=== PATIENT | female | born 1960 | race Caucasian/White ===

== ENCOUNTER 2019-09-23 18:09 | Inpatient (IN) | payer MEDICAID ==
[~2019-09-23] VITALS: Ht 160 cm; Wt 76.2 kg
--- NOTE | 2019-09-23 19:28 | NUR ---
MS/RN NOTES RECEIVED REPORT FROM MELISSA GALLEGOS AT [facility]. PATIENT DIAGNOSIS OF CHOLECYSTITIS. INITIAL V/S BP 107/65 HR 69 TEMP 97.9 SAO2 98. WILL ENDORSED TO COMPLIANCE PROGRAM MANAGER FOR ASSESSMENT AND ADMISSION.
--- NOTE | 2019-09-23 19:45 | NUR ---
MS ABORIGINAL LIAISON OFFICER NOTES RECEIVED ADMISSION FROM DAY SHIFT RN. PATIENT DIRECTLY ADMITTED FROM [facility] FOR ACUTE CHOLECYSTITIS. A/OX4. ABLE TO VERBALIZE NEEDS. STABLE ON RA. IV PRESENT ON RIGHT WRIST, SIZE 20, INTACT & PATENT, HEP LOCKED. SKIN IS DRY AND INTACT. LUNGS SOUND CLEAR THROUGHOUT. BOWEL SOUNDS PRESENT. PATIENT C/O LOWER ABDOMINAL PAIN RATED 8/10. DENIES N/V AT THIS TIME. BELONGINGS LIST REVIEWED WITH PATIENT AND PLACED IN CHART. MRSA SWAB OBTAINED. PATIENT STATES NO HOME MEDS. MANAGER NON PROFIT ORCHARD WORKER, IVONE FRANKEL, NOTIFIED OF ADMISSION. AWAITING ADMITTING ORDERS. SAFETY MEASURES IN PLACE AND PATIENT'S NEEDS MET. WILL CONTINUE TO MONITOR.
[2019-09-23 20:00] VITALS: BP 114/53
[2019-09-23] MEDS ORDERED: ZOLPIDEM TARTRATE 5 MG TABLET PO PRN (20:00)
[2019-09-23] MEDS ORDERED: Z GUARD REMEDY 2 OZ OINT TP PRN (20:00)
[2019-09-23] MEDS ORDERED: ACETAMINOPHEN 325 MG TABLET PO PRN (20:00)
[2019-09-23] MEDS: MORPHINE SULFATE INJ 2 MG/ML DISP.SYRIN IV PRN (20:12)
[2019-09-23] MEDS: IV NS 0.9% 1,000 ML IV PRN (23:03)
[2019-09-24] MEDS ORDERED: METRONIDAZOLE 500MG/ NS 100ML 500 MG in PREMIX 1 EA IV SCH (00:30)
[2019-09-24 01:00] VITALS: BP 111/53
[2019-09-24] MEDS ORDERED: METRONIDAZOLE 500MG/ NS 100ML 100 ML IV ONE (01:07)
[2019-09-24] MEDS ORDERED: CEFTRIAXONE 1 G VIAL ONE ×2 (01:08→01:47)
[2019-09-24] MEDS: MORPHINE SULFATE INJ 2 MG/ML DISP.SYRIN IV PRN ×4 (01:09→21:54)
[2019-09-24] MEDS: ONDANSETRON HCL/PF 4 MG/2 ML VIAL IVP PRN (01:22)
[2019-09-24] MEDS: CEFTRIAXONE 2 G in IV NS 0.9% 100 ML IV SCH (02:26)
--- NOTE | 2019-09-24 06:26 | NUR ---
MS RN NOTES PATIENT'S WALLET AND JEWELRY SENT TO SAFE IN NURSING SUBPOENA SERVER'S OFFICE. TICKET NUMBER STAPLED TO BELONGINGS LIST AND PLACED IN CHART.
[2019-09-24 06:54] LABS: BASOPHILS % (AUTO) 0.5 % (0.0-2.0); EOSINOPHILS % (AUTO) 1.7 % (0.0-6.0); HEMATOCRIT 29 % (33-45); HEMOGLOBIN 10.1 g/dL (11.5-14.8); LYMPHOCYTES # (AUTO) 1.1 /CMM (0.8-4.8); LYMPHOCYTES % (AUTO) 38.1 % (20.0-44.0); MEAN CORPUSCULAR HGB CONC 35 g/dl (31.0-36.0); MEAN CORPUSCULAR VOLUME 89 fL (82-100); MONOCYTES # (AUTO) 0.2 /CMM (0.1-1.30); MONOCYTES % (AUTO) 6.9 % (2.0-12.0); NEUTROPHILS # (AUTO) 1.5 /CMM (1.8-8.9); NEUTROPHILS % (AUTO) 52.8 % (43.0-81.0); PLATELET COUNT (AUTO) 209 /CMM (150-450); RED BLOOD CELL COUNT(AUTO) 3.29 MIL/uL (4.0-5.2); WHITE BLOOD COUNT (AUTO) 2.8 K/uL (4.3-11.0)
[2019-09-24 07:05] LABS: CALCIUM, SERUM 8.2 mg/dL (8.5-10.1); CREATININE 0.7 mg/dL (0.6-1.3); PHOSPHORUS 3.6 mg/dL (2.5-4.9); POTASSIUM 3.8 mmol/L (3.5-5.1)
[2019-09-24 07:25] LABS: THYROID STIMULATING HORMONE 1.476 uIU/mL (0.358-3.74)
--- NOTE | 2019-09-24 07:30 | NUR ---
RN OPENING NOTE Patient is resting in bed, A/O x4, showing no signs of acute distress or SOB, stable on RA. IV line in the LFA #20g is clean and intact running NS @ 75ml/hour. Patient is ambulatory and has BRP. Patient has no complaints of pain at this time. Patient kept NPO due to HIDA scan scheduled for this AM. Bed is in lowest position, side rails x3 in upright position, call light is within reach, fall safety and aspiration precautions enforced. Will continue with plan of care.
--- NOTE | 2019-09-24 07:42 | NUR ---
MS RN CLOSING NOTES PATIENT AWAKE IN BED. A/OX4. STABLE ON RA. NO C/O OF SOB OR PAIN. IV ON LEFT FA, SIZE 20, INTACT & PATENT WITH NS RUNNING AT 75 ML/HR. PATIENT NPO. SAFETY MEASURES IN PLACE AND PATIENT'S NEEDS MET. BED LOCKED, SIDE RAILS X2, CALL LIGHT WITHIN REACH. WILL ENDORSE TO DAY SHIFT NURSE PLAN OF CARE.
[2019-09-24 08:00] VITALS: BP 102/67
[2019-09-24] MEDS: PANTOPRAZOLE 40 MG VIAL IV SCH (08:11)
[2019-09-24] MEDS: METRONIDAZOLE 500MG/ NS 100ML 500 MG in PREMIX 1 EA IV SCH ×3 (08:11→20:57)
[2019-09-24 08:16] VITALS: BP 102/67
[2019-09-24 08:33] LABS: IRON, SERUM 162 ug/dl (50-175); TOTAL IRON BINDING CAPACITY 290 ug/dl (250-450)
[2019-09-24 08:48] LABS: FERRITIN 72 ng/mL (8-388)
[2019-09-24 08:55] LABS: EOSINOPHILS % (MANUAL) 1 % (0-4); LYMPHOCYTES % (MANUAL) 28 % (16-48); MONOCYTES % (MANUAL) 6 % (0-11.0); NEUTROPHILS % (MANUAL) 65 (42-76)
[2019-09-24] MEDS: ENOXAPARIN SODIUM 40 MG/0.4 ML DISP.SYRIN SQ SCH (08:58)
--- NOTE | 2019-09-24 09:00 | NUR ---
RN NOTE Patient went down to HIDA scan.
--- NOTE | 2019-09-24 09:15 | NUR ---
RT NOTE Went to pt room for EKG. Pt was away from dept.
--- NOTE | 2019-09-24 10:43 | NUR ---
RN NOTE Patient is back from HIDA scan.
--- NOTE | 2019-09-24 11:37 | NUR ---
RN NOTE HIDA scan came back negative, MD at the bedside discussing POC with patient. Ok per MD to start on clear liquid diet.
[2019-09-24 13:18] LABS: ALBUMIN 2.9 g/dL (3.4-5.0); BILIRUBIN,DIRECT 0.3 mg/dL (0.0-0.2); BILIRUBIN,TOTAL 0.8 mg/dL (0.2-1.0); TOTAL PROTEIN, SERUM 6.8 g/dL (6.4-8.2)
[2019-09-24 16:00] VITALS: BP 110/51
--- NOTE | 2019-09-24 16:00 | NUR ---
RN NOTE Called Dr. Alcantara's office and spoke with board of education secretary. Left a message to consult with patient and review HIDA/MRCP.
[2019-09-24 16:40] VITALS: BP 110/51
--- NOTE | 2019-09-24 19:21 | NUR ---
RN CLOSING NOTE Patient is resting in bed, A/O x4, showing no signs of acute distress or SOB, stable on RA. Patient's pain managed throughout shift. IV line in the LFA #20g is clean and intact. All patient needs met, all due medications given, patient has BRP and is ambulatory. Fall safety and aspiration precautions enforced. Will endorse to night shift manager.
--- NOTE | 2019-09-24 19:45 | NUR ---
MS RN OPENING NOTES PATIENT AWAKE IN BED. A/OX4; ABLE TO VERBALIZE NEEDS. STABLE ON RA. NO C/O OF SOB OR PAIN AT THIS TIME. IV PRESENT ON LEFT FA, SIZE 20, INTACT & PATENT, HEP LOCKED. SAFETY MEASURES IN PLACE AND PATIENT'S NEEDS MET. BED LOCKED, SIDE RAILS X2, CALL LIGHT WITHIN REACH. WILL CONTINUE TO MONITOR.
--- NOTE | 2019-09-24 19:55 | NUR ---
MS RN NOTES PATIENT SEEN BY RACHELE SILVEIRA AT THE BEDSIDE
[2019-09-24 20:00] VITALS: BP 114/71
[2019-09-25] MEDS: IV NS 0.9% 1,000 ML IV PRN (01:09)
[2019-09-25] MEDS: CEFTRIAXONE 2 G in IV NS 0.9% 100 ML IV SCH (01:09)
[2019-09-25 04:34] VITALS: BP 113/59
[2019-09-25] MEDS: MORPHINE SULFATE INJ 2 MG/ML DISP.SYRIN IV PRN ×2 (04:35→13:49)
[2019-09-25] MEDS: METRONIDAZOLE 500MG/ NS 100ML 500 MG in PREMIX 1 EA IV SCH ×3 (04:37→20:49)
[2019-09-25] MEDS: ONDANSETRON HCL/PF 4 MG/2 ML VIAL IVP PRN (04:44)
--- NOTE | 2019-09-25 06:52 | NUR ---
MS RN CLOSING NOTES PATIENT AWAKE IN BED. A/OX4. NO C/O OF SOB OR PAIN AT THIS TIME. IV PRESENT ON LEFT FA, SIZE 20, INTACT & PATENT, WITH NS RUNNING AT 75 ML/HR. SAFETY MEASURES IN PLACE AND PATIENT'S NEEDS MET. BED LOCKED, SIDE RAILS X2, CALL LIGHT WITHIN REACH. WILL ENDORSE TO DAY SHIFT NURSE PLAN OF CARE.
[2019-09-25 08:00] VITALS: BP 107/64
[2019-09-25 08:04] LABS: BASOPHILS % (AUTO) 0.4 % (0.0-2.0); EOSINOPHILS % (AUTO) 0.8 % (0.0-6.0); HEMATOCRIT 33 % (33-45); HEMOGLOBIN 11.1 g/dL (11.5-14.8); LYMPHOCYTES # (AUTO) 1.2 /CMM (0.8-4.8); LYMPHOCYTES % (AUTO) 30.5 % (20.0-44.0); MEAN CORPUSCULAR HGB CONC 34 g/dl (31.0-36.0); MEAN CORPUSCULAR VOLUME 88 fL (82-100); MONOCYTES # (AUTO) 0.3 /CMM (0.1-1.30); MONOCYTES % (AUTO) 6.5 % (2.0-12.0); NEUTROPHILS # (AUTO) 2.4 /CMM (1.8-8.9); NEUTROPHILS % (AUTO) 61.8 % (43.0-81.0); PLATELET COUNT (AUTO) 245 /CMM (150-450); WHITE BLOOD COUNT (AUTO) 3.9 K/uL (4.3-11.0)
[2019-09-25 08:32] LABS: BILIRUBIN,TOTAL 0.4 mg/dL (0.2-1.0); CALCIUM, SERUM 8.6 mg/dL (8.5-10.1); CREATININE 0.7 mg/dL (0.6-1.3); MAGNESIUM 1.9 mg/dL (1.8-2.4); PHOSPHORUS 2.8 mg/dL (2.5-4.9); POTASSIUM 3.5 mmol/L (3.5-5.1)
[2019-09-25] MEDS: PANTOPRAZOLE 40 MG VIAL IV SCH (09:30)
[2019-09-25] MEDS: ENOXAPARIN SODIUM 40 MG/0.4 ML DISP.SYRIN SQ SCH (09:48)
--- NOTE | 2019-09-25 10:37 | NUR ---
MS/RN PATIENT WAS COMPLAINING OF HEADACHE 3/10 ON PAIN SCALE. TYLENOL 650MG PO WAS GIVEN TO PATIENT. WILL CONTINUE TO MONITOR.
--- NOTE | 2019-09-25 11:30 | NUR ---
MARIANELA MAGANA NOTES PATIENT AWAKE IN BED. A/OX4. NO C/O OF SOB OR PAIN AT THIS TIME. IV PRESENT ON LEFT FA, SIZE 20, INTACT & PATENT, WITH NS RUNNING AT 75 ML/HR. SAFETY MEASURES IN PLACE AND PATIENT'S NEEDS MET. BED LOCKED, SIDE RAILS X2, CALL LIGHT WITHIN REACH. WILL ENDORSE TO DAY SHIFT NURSE PLAN OF CARE. Addendum: 09/25/19 at 1133 by VETO FRANCISCO RN MS/RN OPENING NOTES RECEIVED PATIENT AWAKE IN BED, ALERT AND ORIENTED X4. NO SIGNS OF SOB OR PAIN AT THIS TIME. IV PRESENT ON LEFT FA, G#20, INTACT & PATENT, NS RUNNING AT 75 ML/HR. SAFETY MEASURES IN PLACE WITH BED LOCKED AND IN LOWEST POSITION, SIDE RAILS X2, CALL LIGHT WITHIN REACH. WILL CONTINUE TO MONITOR PATIENT THROUGHOUT SHIFT.
[2019-09-25 16:00] VITALS: BP 102/69
--- NOTE | 2019-09-25 18:30 | NUR ---
MS/RN CLOSING NOTES PATIENT IS AWAKE RESTING IN BED, ALERT AND ORIENTED X4. NO SIGNS OF SOB OR PAIN AT THIS TIME. PATIENT IS IN NO DISTRESS. IV PRESENT ON LEFT FOREARM G#20, INTACT & PATENT, RUNNING NS AT 75 ML/HR. ALL OF THE PATIENTS NEEDS HAVE BEEN MET DURING SHIFT. SAFETY MEASURES IN PLACE WITH BED LOCKED AND IN LOWEST POSITION, SIDE RAILS X2, CALL LIGHT WITHIN REACH. WILL ENDORSE CARE OF PATIENT TO MUSHROOM PICKER.
--- NOTE | 2019-09-25 19:10 | NUR ---
MS RN NOTES RECEIVED PT IN BED AWAKE AND ABLE TO MAKE NEEDS KNOWN. PT A/O X3. RESPIRATIONS EVEN AND UNLABORED WITH NO S/S OF ACUTE DISTRESS OR SOB NOTED. NO COMPLAINTS OF PAIN AT THIS TIME. PT NOTED WITH LFA IV G#20, INTACT & PATENT, INFUSING NS AT 75 ML/HR. SAFETY MEASURES IN PLACE WITH BED IN LOWEST LOCKED POSITION WITH SIDE RAILS UP X2. CALL LIGHT WITHIN REACH. WILL CONTINUE TO MONITOR.
[2019-09-25 20:00] VITALS: BP 117/61
[2019-09-26] MEDS: CEFTRIAXONE 2 G in IV NS 0.9% 100 ML IV SCH ×2 (00:11→23:31)
[2019-09-26] MEDS: IV NS 0.9% 1,000 ML IV PRN ×2 (01:23→21:10)
[2019-09-26] MEDS: METRONIDAZOLE 500MG/ NS 100ML 500 MG in PREMIX 1 EA IV SCH ×3 (05:33→20:39)
[2019-09-26] MEDS: MORPHINE SULFATE INJ 2 MG/ML DISP.SYRIN IV PRN ×3 (05:40→20:58)
--- NOTE | 2019-09-26 07:30 | NUR ---
MS/RN OPENING NOTES RECEIVED PATIENT AWAKE RESTING IN BED, ALERT AND ORIENTED X4. NO SIGNS OF SOB OR PAIN AT THIS TIME. PATIENT IS IN NO DISTRESS. IV PRESENT ON RIGHT FOREARM G#22, INTACT & PATENT, RUNNING NS AT 75 ML/HR. SAFETY MEASURES IN PLACE WITH BED LOCKED AND IN LOWEST POSITION, SIDE RAILS X2, CALL LIGHT WITHIN REACH. WILL CONTINUE TO MONITOR PATIENT DURING SHIFT.
--- NOTE | 2019-09-26 07:47 | NUR ---
MS RN NOTES PT IN BED AWAKE AND ABLE TO MAKE NEEDS KNOWN. PT A/O X3. RESPIRATIONS EVEN AND UNLABORED WITH NO S/S OF ACUTE DISTRESS OR SOB NOTED THROUGHOUT SHIFT. NO COMPLAINTS OF PAIN AT THIS TIME. PT NOTED WITH RFA IV G#22, INTACT & PATENT, INFUSING NS AT 75 ML/HR. SAFETY MEASURES IN PLACE WITH BED IN LOWEST LOCKED POSITION WITH SIDE RAILS UP X2. CALL LIGHT WITHIN REACH. WILL ENDORSE TO ONCOMING NURSE FOR DAPHNIE..
[2019-09-26 08:00] VITALS: BP 113/61
[2019-09-26] MEDS: PANTOPRAZOLE 40 MG VIAL IV SCH (08:28)
[2019-09-26] MEDS: ENOXAPARIN SODIUM 40 MG/0.4 ML DISP.SYRIN SQ SCH (08:29)
[2019-09-26 10:23] LABS: ALBUMIN 2.8 g/dL (3.4-5.0); BILIRUBIN,TOTAL 0.3 mg/dL (0.2-1.0); CALCIUM, SERUM 8.2 mg/dL (8.5-10.1); CREATININE 0.9 mg/dL (0.6-1.3); POTASSIUM 3.5 mmol/L (3.5-5.1); TOTAL PROTEIN, SERUM 6.3 g/dL (6.4-8.2)
[2019-09-26 16:00] VITALS: BP 115/80
--- NOTE | 2019-09-26 18:04 | NUR ---
MS/RN CLOSING NOTES PATIENT IS AWAKE RESTING IN BED, ALERT AND ORIENTED X4. NO SIGNS OF SOB OR PAIN AT THIS TIME. PATIENT IS IN NO DISTRESS. IV PRESENT ON RIGHT FOREARM G#22, INTACT & PATENT, RUNNING NS AT 75 ML/HR. SAFETY MEASURES IN PLACE WITH BED LOCKED AND IN LOWEST POSITION, SIDE RAILS X2, CALL LIGHT WITHIN REACH. PATIENT SNEEDS HAVE BEEN CARED FOR DURING SHIFT. WILL ENDORSE CARE TO FARM MANAGER.
[2019-09-26 20:00] VITALS: BP 118/61
--- NOTE | 2019-09-26 20:00 | NUR ---
RN NOTES RECEIVED PATIENT IN BED, ALERT AND ORIENTED X4, ON ROOM AIR, WITH ABDOMINAL DISCOMFORT, CLEAR LIQUID DIET, ANXIOUS TO FIND OUT ABOUT PENDING TRANSFER TO [facility]. KEPT SAFE WILL CONTINUE TO MONITOR
[2019-09-26] MEDS: ONDANSETRON HCL/PF 4 MG/2 ML VIAL IVP PRN (21:10)
[2019-09-26 22:00] VITALS: BP 118/61
[2019-09-26] MEDS: ALPRAZOLAM 0.25 MG TABLET PO PRN (23:36)
[2019-09-27] MEDS: METRONIDAZOLE 500MG/ NS 100ML 500 MG in PREMIX 1 EA IV SCH ×3 (04:29→12:59)
--- NOTE | 2019-09-27 06:18 | NUR ---
RN NOTES ALERT AND ORIENTED X4, STABLE ON ROOM AIR, EPIGASTRIC PAIN, WITH EPISODE OF NAUSEA, NO EMESIS, GIVEN ZOFRAN AND MORPHINE WITH ADEQUATE RELIEF, CLEAR LIQUID ONLY, ANXIOUS AT BEDTIME, WITH NEW ORDER OF XANAX Q6HRS, AWAITING TRANSFER TO [facility] FOR BALLOON ASSISTED ERCP, FLAGYL AND ROCEPHIN, NO AM LABS, FOLLOW UP WITH [facility] [employer] REGARDING TRANSFER.
[2019-09-27 08:00] VITALS: BP 111/66
[2019-09-27 08:32] LABS: ALBUMIN 2.9 g/dL (3.4-5.0); BILIRUBIN,TOTAL 0.4 mg/dL (0.2-1.0); CALCIUM, SERUM 8.5 mg/dL (8.5-10.1); CREATININE 0.7 mg/dL (0.6-1.3); POTASSIUM 3.7 mmol/L (3.5-5.1); TOTAL PROTEIN, SERUM 6.5 g/dL (6.4-8.2)
[2019-09-27] MEDS: ALPRAZOLAM 0.25 MG TABLET PO PRN ×3 (08:49→22:49)
[2019-09-27] MEDS: PANTOPRAZOLE 40 MG VIAL IV SCH (10:03)
[2019-09-27] MEDS: ENOXAPARIN SODIUM 40 MG/0.4 ML DISP.SYRIN SQ SCH (10:05)
[2019-09-27] MEDS: ONDANSETRON HCL/PF 4 MG/2 ML VIAL IVP PRN ×2 (11:55→21:24)
[2019-09-27] MEDS: MORPHINE SULFATE INJ 2 MG/ML DISP.SYRIN IV PRN ×2 (12:02→20:39)
[2019-09-27 16:00] VITALS: BP 123/74
--- NOTE | 2019-09-27 18:30 | NUR ---
medicated x 2 with xanax.states roomate too loud and wants to be transferred rufus.
--- NOTE | 2019-09-27 21:29 | NUR ---
RN NOTES RECEIVED PATIENT IN BED, ALERT AND ORIENTED X4, ANXIOUS AT TIMES, EPIGASTRIC PAIN RELIEVED WITH MORPHINE AND ZOFRAN, AMBULATES, CONTINENT OF BOWEL AND BLADDER, WILL CONTINUE TO MONITOR
[2019-09-27] MEDS: CEFTRIAXONE 2 G in IV NS 0.9% 100 ML IV SCH (23:31)
[2019-09-28] MEDS: MORPHINE SULFATE INJ 2 MG/ML DISP.SYRIN IV PRN ×2 (02:17→10:57)
[2019-09-28] MEDS: METRONIDAZOLE 500MG/ NS 100ML 500 MG in PREMIX 1 EA IV SCH (04:04)
--- NOTE | 2019-09-28 06:40 | NUR ---
RN NOTES ALERT AND ORIENTED X4, STABLE ON ROOM AIR, ABDOMINAL PAIN, RELIEVED BY MORPHINE, GIVEN ZOFRAN X1, FLAGYL AND ROCEPHIN, PENDING TRANSFER TO [facility] TODAY, TRANSFER PAPER AND DSICHARGE PAPERS STARTED. INFO OF TRANSFER: [facility] [address] [facility] [address] [id number]. [address], RO[address], CALL SHANON AT TO GIVE REPORT. CALL 30 MINUTES BEFORE AND UPON ARRIVAL AT , PT IS EXPECTED AT 10 TO 11AM. ERCP ON SUNDAY
[2019-09-28 08:00] VITALS: BP 109/54
[2019-09-28] MEDS: ENOXAPARIN SODIUM 40 MG/0.4 ML DISP.SYRIN SQ SCH (08:26)
[2019-09-28] MEDS: ALPRAZOLAM 0.25 MG TABLET PO PRN (08:28)
[2019-09-28] MEDS: PANTOPRAZOLE 40 MG VIAL IV SCH (08:28)
--- NOTE | 2019-09-28 11:00 | NUR ---
MS GALLEGOS NOTES PATIENT PICKED UP BY [facility]. INSTRUCTIONS GIVEN TO EMT TO CALL PRIOR TO ARRIVAL AND UPON ARRIVAL AT [facility]. OBSERVED EMT CALLING [facility] INSTRUCTED. CALLED [facility] AND SPOKE TO EL NAVA AND REPORT GIVEN FOR ACUTE TRANSFER TO [facility] FOR BALLOON ENTEROSCOPY ASSISTED ERCP SCHEDULED ON 09/29/19Sunday. PER EL NAVA TO KEEP RIGHT FA #22 SL. PATIENT ALERT AND ORIENTED X4. NO SOB. AMBULATORY WITH STEADY GAIT. COMPLAIN OF PAIN, MEDICATED ORDERED PRIOR TO DISCHARGE. DISCHARGED PACKET GIVEN TO PATIENT AND EMT. RIGHT FA # 22 SL INTACT AND PATENT. ALL BELONGINGS ACCOUNTED FOR. PATIENT LEFT VIA GURNEY ACCOMPANIED BY 2 EMT IN STABLE CONDITION. Addendum: 09/28/19 at 1136 by ANTHONY MOLINA RN PATIENT IS ASSIGNED TO ROOM 6118B PER EL NORTON. PER PATIENT, SHE WILL CALL HER AND HER FAMILY WHEN SHE GETS TO [facility] AND WILL COMMUNICATE THROUGH FACE TIME INSTEAD.
== END 2019-09-28 11:00 | disposition short-term general hospital (02) ==
LOC: MED 18:09
PROVIDERS: ADMIT Internal Medicine; ATTEND Internal Medicine
DX: K80.42 Calculus of bile duct with acute cholecystitis without obstruction (principal); D64.9 Anemia, unspecified; E66.9 Obesity, unspecified; Z68.30 Body mass index [BMI] 30.0-30.9, adult; Z98.84 Bariatric surgery status; D72.819 Decreased white blood cell count, unspecified; Z98.890 Other specified postprocedural states; R74.0 Nonspecific elevation of levels of transaminase and lactic acid dehydrogenase [LDH]
CPT/HCPCS: 36415; 71045-TC; 74181-TC; 78226; 80048-TC; 80053-TC; 80061-TC; 80076-TC; 82728-TC; 83540-TC; 83690-TC; 83735-TC; 84100-TC; 84443-TC; 84702-TC; 85025-TC; 87081-TC; 93307-TC; A4216; A9537; C9113; G0378; J0696; J1650; J2270; J2405; J7030